=== PATIENT | male | born 1990 | race African-American/Black ===

== ENCOUNTER 2022-07-14 10:12 | Emergency (ER) | payer MEDICAID ==
[~2022-07-14] VITALS: Ht 175.3 cm; Wt 68.0 kg
[2022-07-14 10:44] VITALS: BP_SYST 125
--- NOTE | 2022-07-14 11:00 | NUR ---
ASSESMENT PER FLOWSHEET. PT [facility]. DX: CHLAMMYDIA , RX GIVEN. PT STATES HE NOW HAS RT TESTICULAR PAIN. PT NOT FORTHCOMING WITH POSS RE-INFECTION. STATES HE WANTS A SECOND OPINION. COMFORT MEASURES AND SUPPORTIVE CARE INITIATED. URINE CUP PROVIDED. SUPPORTIVE CARE CONTINUED---SNOW Fraga RN
[2022-07-14 11:45] LABS: BILIRUBIN,URINE NEGATIVE (NEGATIVE); BLOOD, URINE 2+ (NEGATIVE); CLARITY/URINE SL CLOUDY (CLEAR); COLOR,URINE YELLOW (YELLOW); GLUCOSE,URINE NEGATIVE (NEGATIVE); KETONES,URINE TRACE (NEGATIVE); LEUKOCYTE ESTERASE ,URINE 3+ (NEGATIVE); NITRITE, URINE NEGATIVE (NEGATIVE); PROTEIN URINE 2+ (NEGATIVE)
[2022-07-14 12:05] LABS: BACTERIA,URINE RARE /HPF (None Seen); RBC,URINE 20-50 /HPF (0-3); WBC,URINE >100 /HPF (0-3)
--- NOTE | 2022-07-14 14:03 | NUR ---
SEEN BY LUIS. DIAGNOSTIC STUDIES RETURNED AND DISCUSSED W/ PT BY LUIS. PENDING MED. ADMIT.
[2022-07-14] MEDS ORDERED: IBUPROFEN 600 MG TABLET PO ONE (14:15)
[2022-07-14] MEDS ORDERED: cefTRIAXone 500 MG in LIDOCAINE 1%, 20 ML MDV 1 ML IM ONE (14:15)
[2022-07-14] MEDS ORDERED: AZITHROMYCIN 250 MG TABLET PO ONE (14:15)
--- NOTE | 2022-07-14 15:10 | NUR ---
Patient given written and verbal discharge instructions and verbalizes understanding. ER MD discussed with patient the results and treatment provided. Patient in stable condition. ID arm band removed.. Patient educated on pain management and to follow up with PMD. Reviewed educational materials with patient. Opportunity for questions provided and answered. Medication side effect fact sheet provided.
--- NOTE | 2022-07-15 08:54 | NUR ---
DENY DELUNA FROM LAB PT GC+, ER DR. CEE MADE AWARE. PT TREATED APPROPRIATELY WHILE HERE IN ED. NO FURTHER ACTION REQUIRED
== END 2022-07-14 15:10 | disposition home or self-care (01) ==
LOC: SED 10:12
DX: A56.19 Other chlamydial genitourinary infection (principal); N50.811 Right testicular pain; Z79.899 Other long term (current) drug therapy
CPT/HCPCS: 99284; 81000; 87086; 36415; 76870; 96372; 87491; J0696; Q0144